=== PATIENT | female | born 2000 | race Caucasian/White ===

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

== ENCOUNTER 2020-05-01 19:59 | Emergency (ER) | payer BC, SELFPAY ==
[2020-05-01 20:15] VITALS: BP 121/76; PULSE 84; RESP 19; TEMP 36.9; O2SAT 100; BMI 22.6
--- NOTE | 2020-05-01 20:30 | XR_ITS ---
PROCEDURE: XR CHEST 2V CLINICAL HISTORY: cough congestion COMPARISON: CR CXR2V XR chest 2V from 04/12/2018 CR XR CHEST 2V from 03/11/2019 FINDINGS: The cardiomediastinal silhouette and pulmonary vascularity are within normal limits. The lungs are clear without infiltrates, suspicious nodules, or pleural effusions. No acute bony abnormalities. IMPRESSION: No acute findings. Dictated by: Homero De Santiago MD 05/02/2020 07:05 Homero De Santiago MD in [facility] 05/02/2020 07:05
--- NOTE | 2020-05-01 20:35 | HMH.EDUTC ---
[facility] – [place] Disposition Clinical Impression: Costochondritis Disposition: Home, Self-Care Condition on Discharge: Good Instructions: DI for Pleurisy, DI for Costochondritis Additional Instructions: Continue antibiotics as prescribed Take Ibuprofen as prescribed Follow up with your Family Doctor if no improvement or any worsening of symptoms Return if needed Straight to ER if any life threatening symptoms Prescriptions: Ibuprofen [Ibuprofen 800mg Tablet] 800 mg PO Q8HP PRN #15 tab PRN Reason: Moderate Pain Transmission Status: Pending to [facility] Referrals: Kerline Corbett APRN [Primary Care Provider] - Time of Disposition: 21:01 Medical Decision Making - Alberto Inquiry Pt receiving controlled substance: No Alberto was queried for this patient: No Vital Signs: 05/01/20 20:15 Temperature 98.4 F Temperature Source Oral Pulse Rate [Right Brachial] 84 Respiratory Rate 19 Blood Pressure [Right Arm] 121/76 Blood Pressure Mean [Right Arm] 91 Blood Pressure Source [Right Arm] Automatic Cuff Blood Pressure Position [Right Arm] Sitting 02 Sat by Pulse Oximetry 100 Oxygen Delivery Method Room Air - Lab Data Lab results reviewed: Yes: I reviewed the patient's lab results. Orders (Tests/Meds): ORDERS Category Date Time Status XR chest 2V Stat Exams 05/01/20 20:30 Ordered Covid-19 Nasal PCR Sendout P&[facility] Stat Lab 05/01/20 20:15 Ordered - Radiology Data #1 Image(s): Chest Image Reviewed: Yes I reviewed the patient's radiology image w/the ED provider Preliminary Findings: Normal/NAD [facility] – [place] HPI - General Stated complaint: M[place], body aches, sternum pain, nausea Time Seen by Provider: 05/01/20 20:35 Mode of Arrival: Ambulatory Source of Information: Patient, Parent(s) Limitations: No Limitations Description of Symptoms (Recalled from Triage Doc. by RN): PATIENT C/O BODY ACHES, HEADACHE, FATIGUE, SORE THROAT, COUGH, AND CHILLS X 2 WEEKS HEENT Symptoms (Recalled from RN notes): Yes Resp Symptoms (Recalled from RN notes): Yes Skin Symptoms (Recalled from RN notes): No MS Symptoms (Recalled from RN notes): No Functional Status (Recalled from RN notes): WNL - History of Present Illness Provider Complaint: Mother state that she was recently around her aunt and cousin that was positive for COVID States that she was tested about 2 days after she was around them for COVID and it was negative State that she is currently on antibiotics for strep throat and has one day left State that she was still having body aches, chills, fatigue and sometimes pain in her strernal area when she takes a deep breath or coughs so she came back in to get rechecked Denies pain at this time - Related Data Home Medications Medication Instructions Recorded Confirmed Buspirone HCl [Buspar 5mg tablet] 5 mg PO DAILY 05/01/20 05/01/20 cephALEXin [cephALEXin 500mg 500 mg PO BID 05/01/20 05/01/20 capsule*] risperiDONE [Risperdal 1mg Tablet] 1 mg PO DAILY 05/01/20 05/01/20 Previous Rx's Medication Instructions Recorded Ibuprofen [Ibuprofen 800mg 800 mg PO Q8HP PRN #15 tab 05/01/20 Tablet] Allergies Allergy/AdvReac Type Severity Reaction Status Date / Time Penicillins Allergy Verified 03/11/19 11:17 - Worker's Comp Is this a Worker's Comp case?: No [facility] History - Hepatitis A Screen Drug use history?: No High risk sexual behaviors?: No History of sexually transmitted infection?: No Currently employed?: No Childcare worker?: No Do you have indoor plumbing?: Yes Do you have electricity?: Yes Attestation statement:: This patient has been screened for Hepatitis A risk factors. I have reviewed the patient's past medical history: Yes Medical History: Reports:: Cancer Laterality Cases: Bilateral: Tonsillectomy - Social History Alcohol Intake: never Occupational Status: other ROS Obtained: Yes All systems reviewed & no additional complaints, Yes Systems reviewed as appropriate & no
[2020-05-01 20:55] LABS: UTC Influenza A Antigen Negative (Negative)
[2020-05-01 20:56] LABS: UTC Influenza B Antigen Negative (Negative)
--- NOTE | 2020-05-01 21:02 | PC.NURSE ---
MEDICATION DOSE VERIFIED BY PAUL PATIÑO APRN WITH [facility]
[2020-05-01 21:06] LABS: UTC Strep Screen (Rapid) Negative (Negative)
[2020-05-01 21:07] VITALS: BP 121/76; PULSE 84; RESP 19; TEMP 36.9; O2SAT 100
[2020-05-03 11:37] LABS: Covid-19 Nasal PCR Sendout P&C Negative
== END 2020-05-01 21:09 | disposition home or self-care (01) ==
PROVIDERS: Emergency Provider Nurse Practitioner; PCP Nurse Practitioner Family
DX: M94.0 Chondrocostal junction syndrome [Tietze] (principal); Z20.822 Contact with and (suspected) exposure to COVID-19; Z88.0 Allergy status to penicillin
CPT/HCPCS: 71046; 87804; 87880; 99202; G0463; U0004

== ENCOUNTER → 2022-03-01 17:56 | Outpatient (CLI) | payer BC, SELFPAY | PROVIDERS: PCP Family Medicine; Visit Provider Family Medicine | DX: N89.8 Other specified noninflammatory disorders of vagina (principal); B96.29 Other Escherichia coli [E. coli] as the cause of diseases classified elsewhere | CPT/HCPCS: 87086; 87088; 87186 ==

== ENCOUNTER → 2022-03-10 13:50 | Outpatient (CLI) | payer BC, SELFPAY ==
[2022-03-10 18:00] LABS: Basophils # 0.1 K/mm3 (0-0.2); Basophils % 0.8 % (0.1-2.0); Eosinophils # 0.1 K/mm3 (0.0-0.4); Eosinophils % 1.9 % (0.1-12.0); Hematocrit 43.7 % (37.0-47.0); Hemoglobin 14.4 g/dL (12.2-16.2); Mean Corpuscular Hemoglobin 30.9 pg (27.0-31.2); Mean Corpuscular Volume 93.7 fl (81-99); Mean Platelet Volume 10.4 fl (7.4-10.4); Monocytes # 0.4 K/mm3 (0.1-1.0); Monocytes % 5.7 % (1.7-9.3); Neutrophils # 4.8 K/mm3 (1.8-7.8); Neutrophils % 64.7 % (37.0-80.0); Platelet Count 198 K/mm3 (142-424); Red Blood Count 4.66 M/mm3 (4.20-5.40); Red Cell Distribution Width 12.6 % (11.5-17.5); White Blood Count 7.4 K/mm3 (4.8-10.8)
[2022-03-10 18:53] LABS: Alanine Aminotransferase 9 U/L (12-78); Albumin Level 4.5 g/dl (3.5-5.0); Albumin/Globulin Ratio 1.7 (1.1-1.8); Alkaline Phosphatase 96 U/L (38-126); Aspartate Amino Transferase 24 U/L (14-36); Bilirubin,Total 0.6 mg/dl (0.2-1.3); Blood Urea Nitrogen 19 mg/dl (7-17); Calcium 9.3 mg/dl (8.4-10.2); Carbon Dioxide 22 mmol/L (22.0-30.0); Chloride 99 mmol/L (98-107); Estimated Glomerular Filt Rate 126 ml/min (>60); GFR (African American) 153 ML/MIN (>60); Globulin 2.7 g/dL (1.3-3.2); Glucose 74 mg/dl (74-100); Sodium 139 mmol/L (136-145); Total Protein,Serum 7.2 g/dl (6.3-8.2)
[2022-03-10 19:03] LABS: Intact Parathyroid Hormone 40.8 pg/mL (7.5-53.5)
[2022-03-10 19:22] LABS: Thyroid Stimulating Hormone 1.44 uIU/mL (0.465-4.68)
[2022-03-12 11:19] LABS: FSH 5.8 mIU/mL (.); Prolactin 11.7 ng/mL (4.8-23.3)
== END ==
PROVIDERS: PCP Nurse Practitioner Family; Visit Provider Nurse Practitioner Family
DX: R30.0 Dysuria (principal); R53.83 Other fatigue
CPT/HCPCS: 80053; 83001; 83002; 83970; 84146; 84443; 85025; 87086

== ENCOUNTER → 2022-08-04 17:03 | Outpatient (CLI) | payer BC, SELFPAY | PROVIDERS: PCP Nurse Practitioner Family; Visit Provider Nurse Practitioner Family | DX: R11.10 Vomiting, unspecified (principal) | CPT/HCPCS: 87086 ==

== ENCOUNTER → 2022-10-04 09:25 | Outpatient (CLI) | payer BC, SELFPAY ==
[2022-10-04 17:02] LABS: Basophils % 0.4 % (0.1-2.0); Eosinophils # 0.2 K/mm3 (0.0-0.4); Eosinophils % 4.2 % (0.1-12.0); Hematocrit 43.7 % (37.0-47.0); Hemoglobin 14.6 g/dL (12.2-16.2); Lymphocytes # 1.5 K/mm3 (0.7-4.5); Lymphocytes % 26.6 % (10-50); Mean Corpuscular HGB Conc 33.3 g/dL (31.8-35.4); Mean Corpuscular Hemoglobin 29.7 pg (27.0-31.2); Mean Corpuscular Volume 88.9 fl (81-99); Mean Platelet Volume 10.2 fl (7.4-10.4); Monocytes # 0.3 K/mm3 (0.1-1.0); Monocytes % 5.7 % (1.7-9.3); Neutrophils # 3.6 K/mm3 (1.8-7.8); Neutrophils % 63.1 % (37.0-80.0); Platelet Count 179 K/mm3 (142-424); Red Blood Count 4.91 M/mm3 (4.20-5.40); Red Cell Distribution Width 12.8 % (11.5-17.5); White Blood Count 5.6 K/mm3 (4.8-10.8)
[2022-10-04 17:14] LABS: Alanine Aminotransferase 9 U/L (12-78); Albumin Level 4.1 g/dl (3.5-5.0); Albumin/Globulin Ratio 1.6 (1.1-1.8); Alkaline Phosphatase 73 U/L (38-126); Anion Gap 16.9 mEq/L (5-15); Aspartate Amino Transferase 21 U/L (14-36); Bilirubin,Total 0.6 mg/dl (0.2-1.3); Blood Urea Nitrogen 15 mg/dl (7-17); Calcium 8.5 mg/dl (8.4-10.2); Carbon Dioxide 23 mmol/L (22.0-30.0); Chloride 103 mmol/L (98-107); Estimated Glomerular Filt Rate 156 ml/min (>60); GFR (African American) 188 ML/MIN (>60); Globulin 2.6 g/dL (1.3-3.2); Glucose 57 mg/dl (74-100); Potassium 3.9 mmoL/L (3.5-5.1); Sodium 139 mmol/L (136-145); Total Protein,Serum 6.7 g/dl (6.3-8.2)
[2022-10-04 17:31] LABS: C-Reactive Protein < 0.3 mg/L (0-4); T4 (Thyroxine) 9.4 ug/dl (5.53-11.0)
[2022-10-04 17:32] LABS: 25-OH Vitamin D, Total 27.9 ng/mL (30-100)
[2022-10-04 17:41] LABS: Erythrocyte Sedimentation Rate 4 mm/hr (0-20)
[2022-10-04 17:45] LABS: Thyroid Stimulating Hormone 1.34 uIU/mL (0.465-4.68)
[2022-10-04 18:04] LABS: Vitamin B12 345 pg/mL (239-931)
[2022-10-06 12:12] LABS: RA Latex Turbid. <10.0 IU/mL (<14.0)
[2022-11-03 00:26] LABS: Antinuclear Antibodies (ANA) Negative
== END ==
PROVIDERS: PCP Family Medicine; Visit Provider Family Medicine
DX: R10.9 Unspecified abdominal pain (principal); R53.83 Other fatigue; I10 Essential (primary) hypertension; E53.8 Deficiency of other specified B group vitamins
CPT/HCPCS: 80053; 82306; 82607; 84436; 84443; 85025; 85651; 86038; 86140; 86225; 86235; 86431

== ENCOUNTER → 2022-10-16 11:00 | Outpatient (CLI) | payer BC, SELFPAY ==
[2022-11-02 17:09] LABS: HCG,Quantitative < 2 mIU/ml (0-5.42)
== END ==
PROVIDERS: PCP Nurse Practitioner Family; Visit Provider Nurse Practitioner Family
DX: Z32.00 Encounter for pregnancy test, result unknown (principal)
CPT/HCPCS: 84702

== ENCOUNTER 2023-11-29 10:15 | Outpatient (CLI) | payer BC, SELFPAY | END 2023-11-29 23:59 | disposition home or self-care (01) | LOC: LAB.DROPOF 11-30 12:23 | PROVIDERS: PCP Nurse Practitioner Family; Visit Provider Nurse Practitioner Family | DX: M54.9 Dorsalgia, unspecified (principal) | CPT/HCPCS: 87086 ==